=== PATIENT | female | born 1990 | race Caucasian/White ===

== ENCOUNTER 2025-05-31 13:39 | Outpatient (CLI) | payer BC, SELFPAY ==
--- NOTE | 2025-05-31 14:00 | CRLHL7_ITS ---
For Patients: As a result of the Century Cures Act, medical imaging exams and procedure reports are released immediately into your electronic medical record. You may view this report before your referring provider. If you have questions, please contact your health care provider. INDICATION: Dating and viability. LMP 03/29/2025. COMPARISON: None. TECHNIQUE: Ultrasound OB pelvis transvaginal for better visualization of the endometrium and ovaries. Real time grayscale imaging of the pelvis was performed. FINDINGS: Sonographic imaging demonstrates a single living intrauterine gestation. The embryo has a cardiac rate measuring 190 beats per minute. The embryo`s crown-rump length measures 2.5 cm which corresponds to a gestational age of 9 weeks 1 day with sonographic due date 01/02/2026. There is a normal-appearing yolk sac. The placenta has not yet developed. There is a 1.1 x 1.2 x 0.8 cm subchorionic hemorrhage inferior to the gestational sac. The right ovary measures 3.4 x 3.1 x 2.6 cm and the left ovary measures 3.0 x 2.2 x 1.9 cm. Corpus luteal cyst in the right ovary. No free fluid in the pelvic cul-de-sac. IMPRESSION: 1. Single living intrauterine gestation corresponding to an ultrasound gestational age of 9 weeks 1 day with sonographic due date 01/02/2026. The clinical gestational age by LMP is 9 weeks 0 days. 2. tachycardia is noted with cardiac rate measuring 190 beats per minute. Close clinical follow-up is recommended. 3. Small subchorionic hemorrhage. Dictated by Monica Laurent MD @ 06/01/2025 4:37:34 AM (Electronically Signed)
== END 2025-05-31 13:40 | disposition home or self-care (01) ==
LOC: US 13:41
PROVIDERS: Visit Provider Physician Assistant
DX: O20.9 Hemorrhage in early pregnancy, unspecified (principal); Z3A.09 9 weeks gestation of pregnancy
CPT/HCPCS: 76817

== ENCOUNTER 2025-05-31 15:27 | Outpatient (CLI) | payer BC, SELFPAY | END 2025-05-31 15:28 | disposition home or self-care (01) | PROVIDERS: Visit Provider Midwife | DX: Z34.81 Encounter for supervision of other normal pregnancy, first trimester (principal); Z3A.09 9 weeks gestation of pregnancy | CPT/HCPCS: 83020; 83021; 85660; 86592; 86703; 86704; 86706; 86762; 86787; 86803; 86850; 86900; 86901; 87086; 87340 ==

== ENCOUNTER 2025-06-27 13:50 | Outpatient (CLI) | payer BC, SELFPAY | END 2025-06-27 13:51 | disposition home or self-care (01) | PROVIDERS: Visit Provider Advanced Practice Midwife | DX: Z34.92 Encounter for supervision of normal pregnancy, unspecified, second trimester (principal); Z34.82 Encounter for supervision of other normal pregnancy, second trimester | CPT/HCPCS: 87491; 87591 ==